=== PATIENT | male | born 1940 | race Caucasian/White ===

== ENCOUNTER → 2017-03-22 | Outpatient (CLI) | payer MEDICARE ==
[2017-03-22 11:24] LABS: ABSOLUTE BASOPHILS 0.1 thou/uL (0.0-0.2); ABSOLUTE EOSINOPHILS 0.2 thou/uL (0.0-0.7); ABSOLUTE LYMPHOCYTES 1.4 thou/uL (0.8-5.3); ABSOLUTE MONOCYTES 0.5 thou/uL (0.0-1.2); ABSOLUTE NEUTROPHILS 4.5 thou/uL (1.6-8.1); BASOPHILS 0.8 %; EOSINOPHILS 2.5 %; HEMATOCRIT 48.4 % (42.0-52.0); HEMOGLOBIN 16.3 gm/dL (14.0-18.0); LYMPHOCYTES 20.5 %; MCH 31.8 pg (26.0-34.0); MCHC 33.6 g/dL (28.0-37.0); MCV 94.5 fL (80.0-100.0); MONOCYTES 8.1 %; NUCLEATED RBCS 0 /100WBC; PLATELET COUNT* 239 thou/uL (150-400); POLYS 68.1 %; RBC 5.12 mil/uL (4.50-6.00); RDW-CV 13.3 % (10.5-14.5); WBC 6.6 thou/uL (4.0-11.0)
[2017-03-22 11:40] LABS: ANION GAP 8 mmol/L (7-16); BUN 19 mg/dL (7-18); CALCIUM 9.2 mg/dL (8.5-10.1); CHLORIDE 104 mmol/L (98-107); CO2 29 mmol/L (21-32); GLUCOSE 105 mg/dL (70-99); POTASSIUM 4.5 mmol/L (3.5-5.1); SODIUM 141 mmol/L (136-145)
[2017-03-22 11:55] LABS: ALBUMIN 3.9 g/dL (3.4-5.0); ALKALINE PHOSPHATASE 78 U/L (46-116); SGOT 16 U/L (15-37); SGPT 28 U/L (30-65); TOTAL BILIRUBIN 0.9 mg/dL (<0.1-1.0); TOTAL PROTEIN 7.6 g/dL (6.4-8.2); TROPONIN-I LEVEL <0.06 ng/mL (<0.06)
[2017-03-22 21:07] LABS: CHOLESTEROL 217 mg/dL (<200); HDL CHOLESTEROL 52 mg/dL (>40); LDL CHOLESTEROL 140 mg/dL (<100); SERUM ASSESSMENT Clear; TC:HDL 4.2 Ratio (Not establshd); TRIGLYCERIDE 127 mg/dL (<150); VLDL 25 mg/dL (<40)
== END ==
LOC: M.LAB 10:54
PROVIDERS: Family Medicine
DX: R06.00 Dyspnea, unspecified (principal)

== ENCOUNTER → 2017-03-23 | Outpatient (CLI) | payer MEDICARE ==
[2017-03-24 11:10] LABS: % FREE PSA 18.3 % (()); FREE PSA 0.53 ng/mL
== END ==
LOC: M.LAB 09:11
PROVIDERS: Family Medicine
DX: E78.00 Pure hypercholesterolemia, unspecified (principal)

== ENCOUNTER → 2019-04-04 | Outpatient (CLI) | payer MEDICARE ==
--- NOTE | 2019-04-04 16:39 | 2DMMODE ---
[place] [address] 2 D/M-MODE ECHOCARDIOGRAM Name: NICKY DUNNE Room: [facility]#: [id number] Admission: 04/04/19 Attend Phys: Tej Easley, Discharge: Date of : 40 Date of Service: 04/04/19 1638 Report #: [id number] THIS REPORT FOR: //name// APPROVED REPORT Study performed: 04/04/2019 10:28:44 EXAM: Comprehensive 2D, Doppler, and color-flow Echocardiogram Patient Location: Out-Patient BSA: 1.90 HR: 77 bpm BP: 150/94 mmHg Other Information Study Quality: Fair Indications Dyspnea 2D Dimensions IVSd: 11.35 (7-11mm) LVOT Diam: 20.99 (18-24mm) LVDd: 40.72 mm PWd: 9.56 (7-11mm) Ascending Ao: 31.63 (22-36mm) LVDs: 28.18 (25-40mm) Aortic Root: 22.71 mm Volumes Left Atrial Volume (Systole) LA ESV Index: 12.40 mL/m2 Aortic Valve AoV Peak Burak.: 0.89 m/s AO Peak Gr.: 3.18 mmHg LVOT Max P.51 mmHg AO Mean Gr.: 1.79 mmHg LVOT Mean P.64 mmHg LVOT Max V: 0.94 m/s AO V2 VTI: 15.57 cm LVOT Mean V: 0.59 m/s ESTRADA (VTI): 4.04 cm2 LVOT V1 VTI: 18.18 cm Mitral Valve E/A Ratio: 0.67 MV Decel. Time: 273.50 ms MV E Max Burak.: 0.45 m/s MV PHT: 79.31 ms MVA (PHT): 2.77 [place] [address] 2 D/M-MODE ECHOCARDIOGRAM Name: NICKY DUNNE Room: [facility]#: [id number] Admission: 04/04/19 Attend Phys: Tej Easley, Discharge: Date of : 40 Date of Service: 04/04/19 1638 Report #: [id number] TDI E/Lateral E': 5.63 E/Medial E': 5.00 Medial E' Burak.: 0.09 m/s Lateral E' Burak.: 0.08 m/s Pulmonary Valve PV Peak Burak.: 0.81 m/s PV Peak Gr.: 2.60 mmHg Left Ventricle The left ventricle is normal size. There is normal LV segmental wall motion. There is normal left ventricular wall thickness. Left ventricular systolic function is normal. LVEF is 55-60%. Grade I - abnormal relaxation pattern. Right Ventricle The right ventricle is normal size. The right ventricular systolic function is normal. Atria The left atrium size is normal. The right atrium size is normal. Aortic Valve The aortic valve is normal in structure. No aortic regurgitation is present. There is no aortic valvular stenosis. Mitral Valve The mitral valve is normal in structure. Mild mitral regurgitation. No evidence of mitral valve stenosis. Tricuspid Valve The tricuspid valve is normal in structure. There is no tricuspid valve regurgitation noted. Pulmonic Valve The pulmonary valve is normal in structure. There is no pulmonic valvular regurgitation. Great Vessels The aortic root is normal in size. IVC is not well visualized. Pericardium There is no [place] [address] 2 D/M-MODE ECHOCARDIOGRAM Name: NICKY DUNNE Room: [facility]#: [id number] Admission: 04/04/19 Attend Phys: Tej Easley, Discharge: Date of : 40 Date of Service: 04/04/19 1638 Report #: [id number] <Conclusion> The left ventricle is normal size. There is normal left ventricular wall thickness. Left ventricular systolic function is normal. LVEF is 55-60%. Grade I - abnormal relaxation pattern. Mild mitral regurgitation. <ELECTRONICALLY SIGNED> By: Tej Easley MD, [facility] 04/04/19 1638 1638 1638 Tej Easley MD, [facility] /INF
--- NOTE | 2019-04-04 17:27 | CARDNUC ---
[place] [address] CARDIAC NUCLEAR IMAGING REPORT Name: NICKY DUNNE Room: [facility]#: [id number] Admission: 04/04/19 Attend Phys: Tej Easley, Discharge: Date of : 40 Date of Service: 04/04/19 1726 Report #: [id number] THIS REPORT FOR: //name// APPROVED REPORT Study performed: 04/04/2019 09:22:17 Exam: Nuclear Stress Test Indication: Dyspnea Patient Location: Out-Patient Stress Tech: Vianey Contreras Stress Nurse: Melissa Knight R.N. Ht: 5 ft 10 in Wt: 159 lbs BSA: 1.89 m2 BMI: 22.81 Medical History Medical History: COPD, SOB, Hyperlipidemia, Former Smoker, Weakness, Fatigue, Dizziness, Fatigue Medications: Atorvastatin Allergies: No known drug allergies Cardiac Risk Factors: Age, Hyperlipidemia, SOB, Past Smoker, COPD. Previous Cardiac Procedures: None Pretest Chest Pain Characteristics: No chest pain Exercise History: Indeterminate Physical Disabilities: Weakness, Dizziness, Fatigue. Meds Held (24 hrs): None Stress Test Details Stress Test: Pharmacologic stress testing performed using 0.4 mg of regadenoson per 5 mL given IV over 10 seconds. Reason for pharmacologic stress test: Dizziness, Fatigue, Weakness.. HR Resting HR: 77 bpm Max Heart Rate (APMHR): 141 bpm Max HR Achieved: 110 bpm Target HR (85% APMHR): 119 bpm % of APMHR: 78 Recovery HR: 98 bpm BP Resting BP: 150/94 mmHg Max BP: 144/82 [place] [address] CARDIAC NUCLEAR IMAGING REPORT Name: NICKY DUNNE Room: [facility]#: [id number] Admission: 04/04/19 Attend Phys: Tej Easley, Discharge: Date of : 40 Date of Service: 04/04/19 1726 Report #: [id number] Resting ECG: Sinus Rhythm Stress ECG: Sinus Tachycardia ST Change: None Arrhythmia: None Recovery ECG: Sinus Rhythm Recovery ST Change: None Recovery Arrhythmia: None Clinical Reason for Termination: Completed protocol Stress Symptoms: Dyspnea, Nausea, Dizziness. Exercise duration: 00 min 00 sec Exercise capacity: 1.00 METs The patient tolerated Lexiscan infusion without significant cardiac symptoms. Nurse Comments A 79 year old male presented for a sitting Lexiscan r/t dizziness and dyspnea. Due to fatigue, dizziness and weakness, patient performed a sitting test, well tolerated. Recovery unremarkable with PO caffeine, effective. Patient was escorted by staff to Nuclear Medicine for imaging. Patient was stable and stated he felt good at that time. Stress ECG Conclusion The baseline 12-lead EKG show sinus rhythm without significant ST segment abnormality. EKGs obtained during and post Lexiscan infusion show sinus rhythm and sinus tachycardia with no significant ST segment changes when compared to baseline. There were no stress-induced arrhythmias. NM EXAM: Myocardial Perfusion REST/STRESS Resting Data Rest SPECT myocardial perfusion imaging was performed in supine position 30 minutes following the intravenous injection of 11.4 mCi of Tc-99m Sestamibi. Time of rest injection: 07:45 The images were gated to evaluate regional wall motion and calculate left ventricular ejection fraction. Administration Route: IV Administration Site: Right AC Pharmacologic Stress Pharmacologic stress test was performed by injecting Regadenoson 0.4 mg IV push followed by the intravenous injection of 36[place] [address] CARDIAC NUCLEAR IMAGING REPORT Name: NICKY DUNNE Room: [facility]#: [id number] Admission: 04/04/19 Attend Phys: Tej Easley, Discharge: Date of : 40 Date of Service: 04/04/19 1726 Report #: [id number] Tc-99m Sestamibi. Time of stress injection: 09:20 Administration Route: IV Administration Site: Right AC Heart Rate at time of stress injection: 103 bpm. Gated Stress SPECT was performed 45 minutes after stress injection. The images were gated to evaluate regional wall motion and calculate left ventricular ejection fraction. Prone imaging was performed. Study Quality Study: Good Artifact: Mild Diaphragmatic artifact Study Data At rest, the left ventricular ejection fraction was 67%.. Post stress, the left ventricular ejection was 64%.. TID = 0.88. Perfusion Perfusion images obtained in the supine position at rest and post Lexiscan stress show photopenia in the inferior wall that resolves completely with post stress prone imaging suggesting diaphragmatic attenuation artifact. No other significant fixed or reversible defects were identified. Wall Motion Normal left ventricular wall motion. Nuclear Conclusion ECG Findings: negative for ischemia Clinical Findings: negative for ischemia Nuclear Findings: negative for ischemia Exercise Capacity: not assessed Left Ventricular Function: normal Risk Study: low Myocardial perfusion images show no defect to suggest infarct or ischemia. Left ventricular systolic function appears normal on gated studies. This is a low risk study. <Conclusion> The baseline 12-lead EKG show sinus rhythm without significant ST segment abnormality. EKGs obtained during and post Lexiscan infusion show sinus rhythm and sinus tachycardia with [place] [address] CARDIAC NUCLEAR IMAGING REPORT Name: NICKY DUNNE Room: [facility]#: [id number] Admission: 04/04/19 Attend Phys: Tej Easley, Discharge: Date of : 40 Date of Service: 04/04/19 1726 Report #: [id number] segment changes when compared to baseline. There were no stress-induced arrhythmias. <ELECTRONICALLY SIGNED> By: Tej Easley MD, FAC 04/04/19 1726 25 25 Tej Easley MD, [facility] /INF
== END ==
LOC: M.NUC 07:20
DX: I34.0 Nonrheumatic mitral (valve) insufficiency (principal); J44.9 Chronic obstructive pulmonary disease, unspecified; E78.5 Hyperlipidemia, unspecified; Z87.891 Personal history of nicotine dependence; Z79.899 Other long term (current) drug therapy

== ENCOUNTER 2019-06-01 22:40 | Observation (INO) | payer MEDICARE ==
[~2019-06-01] VITALS: Ht 177.8 cm; Wt 70.3 kg
[2019-06-01 22:50] VITALS: BP 167/92
[2019-06-01] MEDS ORDERED: FAMOTIDINE 40 M40 M1 PO (22:55)
[2019-06-01] MEDS ORDERED: LIPITOR10 MG PO (22:55)
[2019-06-01 23:20] LABS: ABSOLUTE BASOPHILS 0.1 thou/uL (0.0-0.2); ABSOLUTE EOSINOPHILS 0.1 thou/uL (0.0-0.7); ABSOLUTE LYMPHOCYTES 1.9 thou/uL (0.8-5.3); ABSOLUTE MONOCYTES 0.7 thou/uL (0.0-1.2); ABSOLUTE NEUTROPHILS 6.3 thou/uL (1.6-8.1); BASOPHILS 0.8 %; EOSINOPHILS 1.4 %; HEMATOCRIT 46.1 % (42.0-52.0); LYMPHOCYTES 20.6 %; MCH 32.8 pg (26.0-34.0); MCHC 34.6 g/dL (28.0-37.0); MCV 94.6 fL (80.0-100.0); MONOCYTES 7.9 %; MPV 7.9 fl. (7.2-11.1); NUCLEATED RBCS 0 /100WBC; PLATELET COUNT* 246 thou/uL (150-400); POLYS 69.3 %; RBC 4.87 mil/uL (4.50-6.00); RDW-CV 13.7 % (10.5-14.5); WBC 9.2 thou/uL (4.0-11.0)
[2019-06-01 23:25] LABS: CALCIUM 8.2 mg/dL (8.5-10.1); POTASSIUM 4.2 mmol/L (3.5-5.1); PROTIME 10.7 Seconds (9.20-11.50)
[2019-06-01 23:35] LABS: ALBUMIN 3.9 g/dL (3.4-5.0); TOTAL BILIRUBIN 0.5 mg/dL (<0.1-1.0); TOTAL PROTEIN 7.8 g/dL (6.4-8.2)
[2019-06-01 23:37] LABS: INFLUENZA A ANTIGEN Negative (Negative); INFLUENZA B ANTIGEN Negative (Negative)
[2019-06-02] VITALS (7 sets, daily range): BP systolic 132–150; BP diastolic 68–95
[2019-06-02] MEDS ORDERED: PRESERVISION A1 EAC2 PO (01:43)
[2019-06-02 05:22] LABS: URINE BILIRUBIN NEGATIVE (Negative); URINE BLOOD NEGATIVE (Negative); URINE CLARITY CLEAR; URINE COLOR YELLOW; URINE GLUCOSE-RANDOM NEGATIVE (Negative); URINE KETONES 1+ (Negative); URINE LEUKOCYTES-REFLEX NEGATIVE (Negative); URINE NITRITE-REFLEX NEGATIVE (Negative); URINE PROTEIN NEGATIVE (Negative); URINE UROBILINOGEN 0.2 E.U./dl (0.2-1.0)
--- NOTE | 2019-06-02 06:13 | NUR ---
RECEIVED REPORT FROM [facility]ENUS REED. PT TRANSFERRED TO 205. PT A&OX4. VSS. CLEANING TEAM MEMBER IN PLACE. ADMISSION HISTORY & PHYSICAL ASSESSMENT COMPLETED AND CHARTED. PT ON O2 AT 3L NC. PT TRACING SR/ST ON TELE. PT UPSTANDBY TO RESTROOM. PT DENIES ANY PAIN OR DISCOMFORT. ORIENTED TO ROOM & CALL LIGHT. CALL LIGHT WITHIN REACH.
[2019-06-02] MEDS ORDERED: ADVAIR 100-501 EACH INH (09:41)
[2019-06-02] MEDS ORDERED: PREDNISONE 20 M20 MG PO (09:41)
[2019-06-02] MEDS ORDERED: AZITHROMYCIN250 MG PO (09:41)
[2019-06-02] MEDS ORDERED: PROAIR HFA8.5 GM INH (09:41)
--- NOTE | 2019-06-02 10:41 | EKG ---
[place] [address] ELECTROCARDIOGRAM REPORT Name: NICKY DUNNE Room: [address]#: [id number] Admission: 06/02/19 Attend Phys: Dustin Garza Discharge: Date of : 40 Date of Service: 06/01/19 2247 Report #: [id number] THIS REPORT FOR: //name// [facility] ED Test Date: 2019-06-01 Test Time: 22:47:27 Pat Name: NICKY DUNNE Department: Room: [facility] Gender: M [employer]: [place] : 1940 Requested By: Rosalva Toney Order Number: [id number] MD: Tani Brooks Measurements Intervals [place] Rate: 105 P: 83 DC: 162 QRS: -87 QRSD: 94 T: 83 QT: 366 QTc: 484 Interpretive Statements Sinus tachycardia Ventricular premature complex Left anterior fascicular block Borderline low voltage, extremity leads Abnormal R-wave progression, late transition Borderline prolonged QT interval No previous ECG available for comparison Electronically Signed On 06-02-2019 10:40:10 CDT by Tani Brooks [email or web address] <ELECTRONICALLY SIGNED> By: Tani Brooks MD, FACC 06/02/19 1040 2247 2247 Tani Brooks MD, FAC /EPI
--- NOTE | 2019-06-02 12:23 | NUR ---
ASSUMED PT CARE AT 0800, AOX4, UP SBA, O2 SAT 90'S 3L NC. PT COMPLAINS OF SOA. PT FOR DISCHARGE. RT DID REST AND EXERCISE, PT REQUIRES 3L OF O2 AT HOME. AM ASSESSMENT CHARTED, MEDS GIVEN PER MAR, CALL LIGHT WITHIN REACH, WILL CONTINUE TO MONITOR.
--- NOTE | 2019-06-02 13:00 | NUR ---
DISCHARGED PLAN DISCUSS WITH PT. MEDICATION SEND TO PHARMACY BY PROVIDER. HOME O2 SET UP BY CM. IV, TELE REMOVED. ALL BELONGINGS PACKED AND CHECK. REMINDED TO FOLLOW UP WITH PCP.
--- NOTE | 2019-06-02 14:27 | NUR ---
cm faxed prescription and order to [facility]. Yamile[facility] delivered O2 to ED. pt instructed to contact [facility] when he arrives home to arrange times.
== END 2019-06-02 14:30 | disposition home or self-care (01) ==
LOC: M.ERS 22:40 → M.2W 06-02 00:21 → M.TBA-ER 06-02 00:21 → M.2W 06-02 02:18
PROVIDERS: Emergency Medicine; ADMIT Internal Medicine
DX: J96.01 Acute respiratory failure with hypoxia (principal); J44.1 Chronic obstructive pulmonary disease with (acute) exacerbation; E78.00 Pure hypercholesterolemia, unspecified; K21.9 Gastro-esophageal reflux disease without esophagitis